=== PATIENT | female | born 1955 | race Caucasian/White ===

== ENCOUNTER 2018-07-03 12:36 | Outpatient (CLI) | payer BC ==
--- NOTE | 2018-07-03 16:05 | MMO ---
BILATERAL MAMMOGRAMS: DATE: 07/03/18 HISTORY: Screening mammography. COMPARISON: 12/31/15 and 02/21/12. FINDINGS: Scattered fibroglandular densities and benign-appearing calcifications. No dominant mass or suspiciou s calcifications. The study was evaluated with the assistance of computer-aided detection. IMPRESSION: BIRADS 1: Negative Suggest routine follow-up. POS: HECTOR
== END 2018-07-03 12:37 | disposition home or self-care (01) ==
LOC: SCSMAMMO 12:36
PROVIDERS: ATTEND Family Medicine
DX: Z12.31 Encounter for screening mammogram for malignant neoplasm of breast (principal)
CPT/HCPCS: 77067